=== PATIENT | female | born 1975 | race Caucasian/White ===

== ENCOUNTER 2021-05-07 13:15 | Inpatient (IN) | payer BC ==
[2021-05-07] MEDS ORDERED: cloNIDine HCL 0.1 MG TABLET PO PRN (13:42)
[2021-05-07] MEDS ORDERED: MENTHOL/PHENOL 1 EACH UD MM PRN (13:42)
[2021-05-07] MEDS ORDERED: ONDANSETRON *ODT* 4 MG TABLET SL PRN (13:42)
[2021-05-07] MEDS ORDERED: MAGNESIUM HYDROX 2400MG/30ML ORAL SUSPENSION 30 ML CUP PO PRN (13:42)
[2021-05-07] MEDS ORDERED: ACETAMINOPHEN 325 MG TABLET (FP) PO PRN ×2 (13:42)
[2021-05-07] MEDS ORDERED: MAGNESIUM CITRATE 300 ML BOTTLE PO PRN (13:42)
[2021-05-07] MEDS ORDERED: BISMUTH SUBSALICYLATE 524 MG/30 ML PO PRN (13:42)
[2021-05-07] MEDS ORDERED: IBUPROFEN 400 MG TABLET (FP) PO PRN (13:42)
[2021-05-07] MEDS ORDERED: MAG HYDROX/AL HYDROX/SIMETH 30 ML UNIT-DOSE CUP PO PRN (13:42)
[2021-05-07 13:59] VITALS: BMI 20.9
[2021-05-07] MEDS ORDERED: methaDONE HCL 10 MG TABLET (FOR DETOX USE ONLY) PO ONE (16:15)
[2021-05-07] MEDS ORDERED: NICOTINE 14 MG/24 HOURS TOPICAL PATCH TD SCH (16:30)
[2021-05-07] MEDS: hydrOXYzine PAMOATE 25 MG CAPSULE (FP) PO SCH ×3 (17:24→22:17)
[2021-05-07] MEDS: NICOTINE 10 MG CARTRIDGE (INHALER) IH PRN (17:26)
[2021-05-07] MEDS: PRENATAL VITAMINS W/ FOLIC ACID TABLET (FP) PO SCH (17:29)
[2021-05-07] MEDS ORDERED: RITONAVIR PO SCH (18:00)
[2021-05-07] MEDS ORDERED: [UNRECOGNIZED DRUG - OTHER] PO SCH (18:00)
[2021-05-07] MEDS ORDERED: LOPINAVIR PO SCH (18:00)
[2021-05-07] MEDS: NICOTINE 21 MG/24 HOURS TOPICAL PATCH TD SCH (18:19)
[2021-05-07] MEDS ORDERED: MELATONIN 5 MG TABLETS PO SCH (22:00)
[2021-05-07] MEDS: HALOPERIDOL 5 MG TABLET PO SCH (22:16)
[2021-05-07] MEDS: ATORVASTATIN CA 10 MG TABLET (FP) PO SCH (22:16)
[2021-05-07] MEDS: THIAMINE HCL 100 MG TABLET (FP) PO SCH (22:16)
[2021-05-07] MEDS: QUEtiapine FUMARATE 300 MG TABLET PO SCH (22:17)
[2021-05-08] MEDS ORDERED: LEVOTHYROXINE NA 150 MCG TABLET PO SCH (06:00)
[2021-05-08] MEDS: NICOTINE 10 MG CARTRIDGE (INHALER) IH PRN ×3 (06:05→22:18)
[2021-05-08] MEDS: hydrOXYzine PAMOATE 25 MG CAPSULE (FP) PO SCH ×5 (06:06→22:17)
[2021-05-08] MEDS ORDERED: methaDONE HCL 10 MG TABLET (FOR DETOX USE ONLY) ONE (09:34)
[2021-05-08] MEDS: PRENATAL VITAMINS W/ FOLIC ACID TABLET (FP) PO SCH (10:27)
[2021-05-08] MEDS: FOLIC ACID 1 MG TABLET (FP) PO SCH (10:27)
[2021-05-08] MEDS: QUEtiapine FUMARATE 300 MG TABLET PO SCH ×2 (10:27→22:17)
[2021-05-08] MEDS: DULoxetine HCL 30 MG CAPSULE.DR PO SCH (10:27)
[2021-05-08] MEDS: HALOPERIDOL 5 MG TABLET PO SCH ×2 (10:28→22:17)
[2021-05-08] MEDS: EMTRICITABINE 200MG/TENOFOVIR 300MG PO SCH (10:30)
[2021-05-08] MEDS: NICOTINE 21 MG/24 HOURS TOPICAL PATCH TD SCH (10:31)
[2021-05-08 11:02] LABS: HEMATOCRIT 38.1 % (32.4-45.2); HEMOGLOBIN 12.6 GM/dL (10.7-15.3); MCHC 33.2 g/dl (32.0-36.0); MEAN CELL VOLUME 90.2 fl (80-96); MEAN PLT VOLUME 10.1 fl (7.5-11.1); PLATELET COUNT 151 10^3/uL (134-434); RBC 4.22 M/mm3 (3.60-5.2); RDW 15.6 % (11.6-15.6)
[2021-05-08 11:40] LABS: ALBUMIN 3.2 g/dl (3.4-5.0); BLOOD UREA NITROGEN 10.2 mg/dL (7-18); CREATININE 1.1 mg/dL (0.55-1.3)
[2021-05-08 11:42] LABS: BILIRUBIN,TOTAL 0.2 mg/dL (0.2-1); TOT PROT 6.9 g/dl (6.4-8.2)
[2021-05-08] MEDS: [UNRECOGNIZED DRUG - OTHER] PO SCH ×2 (15:33→22:16)
[2021-05-08] MEDS: RITONAVIR PO SCH ×2 (15:33→22:16)
[2021-05-08] MEDS: LOPINAVIR PO SCH ×2 (15:33→22:16)
[2021-05-08] MEDS: THIAMINE HCL 100 MG TABLET (FP) PO SCH (22:17)
[2021-05-08] MEDS: ATORVASTATIN CA 10 MG TABLET (FP) PO SCH (22:17)
[2021-05-09] MEDS: LEVOTHYROXINE NA 100 MCG TABLET (FP) PO SCH (06:06)
[2021-05-09] MEDS: hydrOXYzine PAMOATE 25 MG CAPSULE (FP) PO SCH ×5 (06:07→22:31)
[2021-05-09] MEDS ORDERED: methaDONE HCL 10 MG TABLET (FOR DETOX USE ONLY) PO ONE (10:00)
[2021-05-09] MEDS: QUEtiapine FUMARATE 300 MG TABLET PO SCH ×2 (10:33→22:31)
[2021-05-09] MEDS: FOLIC ACID 1 MG TABLET (FP) PO SCH (10:33)
[2021-05-09] MEDS: PRENATAL VITAMINS W/ FOLIC ACID TABLET (FP) PO SCH (10:34)
[2021-05-09] MEDS: METHOCARBAMOL 500 MG TABLET PO PRN (10:34)
[2021-05-09] MEDS: HALOPERIDOL 5 MG TABLET PO SCH ×2 (10:34→22:31)
[2021-05-09] MEDS: LOPINAVIR PO SCH ×2 (10:35→22:31)
[2021-05-09] MEDS: DULoxetine HCL 30 MG CAPSULE.DR PO SCH (10:35)
[2021-05-09] MEDS: RITONAVIR PO SCH ×2 (10:35→22:31)
[2021-05-09] MEDS: [UNRECOGNIZED DRUG - OTHER] PO SCH ×2 (10:35→22:31)
[2021-05-09] MEDS: EMTRICITABINE 200MG/TENOFOVIR 300MG PO SCH (10:37)
[2021-05-09] MEDS: NICOTINE 21 MG/24 HOURS TOPICAL PATCH TD SCH (10:38)
[2021-05-09] MEDS: NICOTINE 10 MG CARTRIDGE (INHALER) IH PRN (10:39)
[2021-05-09] MEDS: THIAMINE HCL 100 MG TABLET (FP) PO SCH (22:31)
[2021-05-09] MEDS: ATORVASTATIN CA 10 MG TABLET (FP) PO SCH (22:31)
[2021-05-10] MEDS: LEVOTHYROXINE NA 100 MCG TABLET (FP) PO SCH (06:14)
[2021-05-10] MEDS: hydrOXYzine PAMOATE 25 MG CAPSULE (FP) PO SCH ×5 (06:15→22:20)
[2021-05-10] MEDS ORDERED: methaDONE HCL 10 MG TABLET (FOR DETOX USE ONLY) ONE (09:16)
[2021-05-10] MEDS: EMTRICITABINE 200MG/TENOFOVIR 300MG PO SCH (10:39)
[2021-05-10] MEDS: [UNRECOGNIZED DRUG - OTHER] PO SCH ×2 (10:39→22:19)
[2021-05-10] MEDS: LOPINAVIR PO SCH ×2 (10:39→22:19)
[2021-05-10] MEDS: METHOCARBAMOL 500 MG TABLET PO PRN ×2 (10:39→23:00)
[2021-05-10] MEDS: QUEtiapine FUMARATE 300 MG TABLET PO SCH ×2 (10:39→22:20)
[2021-05-10] MEDS: PRENATAL VITAMINS W/ FOLIC ACID TABLET (FP) PO SCH (10:39)
[2021-05-10] MEDS: RITONAVIR PO SCH ×2 (10:39→22:19)
[2021-05-10] MEDS: FOLIC ACID 1 MG TABLET (FP) PO SCH (10:40)
[2021-05-10] MEDS: HALOPERIDOL 5 MG TABLET PO SCH ×2 (10:40→22:19)
[2021-05-10] MEDS: DULoxetine HCL 60 MG CAPSULE.DR PO SCH (10:41)
[2021-05-10] MEDS: NICOTINE 21 MG/24 HOURS TOPICAL PATCH TD SCH (10:42)
[2021-05-10 13:46] LABS: INR 1.03 (0.83-1.09); PROTHROMBIN TIME (PATIENT) 12.1 SEC (9.7-13.0)
[2021-05-10] MEDS: NICOTINE 10 MG CARTRIDGE (INHALER) IH PRN (16:10)
[2021-05-10] MEDS: THIAMINE HCL 100 MG TABLET (FP) PO SCH (22:20)
[2021-05-10] MEDS: ATORVASTATIN CA 10 MG TABLET (FP) PO SCH (22:20)
[2021-05-11] MEDS: LEVOTHYROXINE NA 100 MCG TABLET (FP) PO SCH (06:33)
[2021-05-11] MEDS: hydrOXYzine PAMOATE 25 MG CAPSULE (FP) PO SCH ×5 (06:34→22:03)
[2021-05-11] MEDS ORDERED: methaDONE HCL 10 MG TABLET (FOR DETOX USE ONLY) PO ONE (10:00)
[2021-05-11] MEDS: FOLIC ACID 1 MG TABLET (FP) PO SCH (10:32)
[2021-05-11] MEDS: METHOCARBAMOL 500 MG TABLET PO PRN ×2 (10:33→17:28)
[2021-05-11] MEDS: DULoxetine HCL 60 MG CAPSULE.DR PO SCH (10:33)
[2021-05-11] MEDS: QUEtiapine FUMARATE 300 MG TABLET PO SCH ×2 (10:33→22:03)
[2021-05-11] MEDS: HALOPERIDOL 5 MG TABLET PO SCH ×2 (10:33→22:02)
[2021-05-11] MEDS: [UNRECOGNIZED DRUG - OTHER] PO SCH ×2 (10:34→22:02)
[2021-05-11] MEDS: RITONAVIR PO SCH ×2 (10:34→22:02)
[2021-05-11] MEDS: LOPINAVIR PO SCH ×2 (10:34→22:02)
[2021-05-11] MEDS: EMTRICITABINE 200MG/TENOFOVIR 300MG PO SCH (10:35)
[2021-05-11] MEDS: NICOTINE 21 MG/24 HOURS TOPICAL PATCH TD SCH (10:35)
[2021-05-11] MEDS: PRENATAL VITAMINS W/ FOLIC ACID TABLET (FP) PO SCH (10:36)
[2021-05-11] MEDS: NICOTINE 10 MG CARTRIDGE (INHALER) IH PRN (18:29)
[2021-05-11] MEDS: THIAMINE HCL 100 MG TABLET (FP) PO SCH (22:03)
[2021-05-11] MEDS: ATORVASTATIN CA 10 MG TABLET (FP) PO SCH (22:03)
[2021-05-12] MEDS: LEVOTHYROXINE NA 100 MCG TABLET (FP) PO SCH (06:36)
[2021-05-12] MEDS: hydrOXYzine PAMOATE 25 MG CAPSULE (FP) PO SCH ×2 (06:36→09:47)
[2021-05-12] MEDS: EMTRICITABINE 200MG/TENOFOVIR 300MG PO SCH (09:45)
[2021-05-12] MEDS: FOLIC ACID 1 MG TABLET (FP) PO SCH (09:45)
[2021-05-12] MEDS: PRENATAL VITAMINS W/ FOLIC ACID TABLET (FP) PO SCH (09:45)
[2021-05-12] MEDS: HALOPERIDOL 5 MG TABLET PO SCH (09:45)
[2021-05-12] MEDS: LOPINAVIR PO SCH (09:46)
[2021-05-12] MEDS: [UNRECOGNIZED DRUG - OTHER] PO SCH (09:46)
[2021-05-12] MEDS: NICOTINE 21 MG/24 HOURS TOPICAL PATCH TD SCH (09:46)
[2021-05-12] MEDS: RITONAVIR PO SCH (09:46)
[2021-05-12] MEDS: QUEtiapine FUMARATE 300 MG TABLET PO SCH (09:47)
[2021-05-12 10:11] VITALS: BP 102/81; PULSE 84; TEMP 98.2
== END 2021-05-12 09:48 | disposition home or self-care (01) | DRG 773 ==
LOC: YASAS 13:15 → Y6N 15:37
PROVIDERS: ADMIT Allergy & Immunology; ATTEND Allergy & Immunology
PROC: HZ2ZZZZ Detoxification Services for Substance Abuse Treatment (ICD-10-PCS; principal; 2021-05-07)
DX: F11.23 Opioid dependence with withdrawal (principal); F10.20 Alcohol dependence, uncomplicated; F14.20 Cocaine dependence, uncomplicated; F17.210 Nicotine dependence, cigarettes, uncomplicated; F33.2 Major depressive disorder, recurrent severe without psychotic features; F19.24 Other psychoactive substance dependence with psychoactive substance-induced mood disorder; Z21 Asymptomatic human immunodeficiency virus [HIV] infection status; E78.5 Hyperlipidemia, unspecified; E89.0 Postprocedural hypothyroidism; Z85.850 Personal history of malignant neoplasm of thyroid
CPT/HCPCS: 36415; 80053; 81025; 85027; 85610; 86780; 93005; 93010; C9803; U0003; U0005

== ENCOUNTER 2023-11-24 10:54 | Inpatient (IN) | payer BC ==
[2023-11-24 12:34] VITALS: BMI 18.3
[2023-11-24] MEDS ORDERED: MAG HYDROX/AL HYDROX/SIMETH 30 ML UNIT-DOSE CUP PO PRN (12:57)
[2023-11-24] MEDS ORDERED: NALOXONE (NARCAN) HCL 4 MG/0.1 ML SPRAY NS PRN (12:57)
[2023-11-24] MEDS ORDERED: BENZONATATE 200 MG CAPSULE PO PRN (12:57)
[2023-11-24] MEDS ORDERED: POLYETHYLENE GLYCOL (HEALTHYLAX) 3350 17 GM PACKET PO PRN (12:57)
[2023-11-24] MEDS ORDERED: NALOXONE HCL 0.4 MG/ML VIAL IM PRN (12:57)
[2023-11-24] MEDS ORDERED: ONDANSETRON *ODT* 4 MG TABLET SL PRN (12:57)
[2023-11-24] MEDS ORDERED: LORazepam 1 MG TABLET PO PRN (12:57)
[2023-11-24] MEDS ORDERED: LOPERAMIDE HCL 2 MG CAPSULE PO PRN (12:57)
[2023-11-24] MEDS ORDERED: ACETAMINOPHEN 325 MG TABLET (FP) PO PRN (12:57)
[2023-11-24] MEDS ORDERED: hydrOXYzine PAMOATE 25 MG CAPSULE (FP) PO PRN (12:57)
[2023-11-24] MEDS ORDERED: DICYCLOMINE HCL 10 MG CAPSULE PO PRN (12:57)
[2023-11-24] MEDS ORDERED: IBUPROFEN 600 MG TABLET (FP) PO PRN (12:57)
[2023-11-24] MEDS ORDERED: BISMUTH SUBSALICYLATE 262 MG/15 ML BTL PO PRN (12:57)
[2023-11-24] MEDS ORDERED: IBUPROFEN 400 MG TABLET (FP) PO PRN (12:57)
[2023-11-24] MEDS ORDERED: METHOCARBAMOL 500 MG TABLET PO PRN (12:57)
[2023-11-24] MEDS ORDERED: guaiFENesin 600 MG TABLET.ER (FP) PO PRN (12:57)
[2023-11-24] MEDS ORDERED: BENZOCAINE/MENTHOL (CHLORASEPTIC ) LOZENGE MM PRN (12:57)
[2023-11-24] MEDS ORDERED: MAGNESIUM HYDROX 2400MG/30ML ORAL SUSPENSION 30 ML CUP PO PRN (12:57)
[2023-11-24] MEDS ORDERED: methaDONE HCL 10 MG TABLET ONE (13:24)
[2023-11-24] MEDS ORDERED: PRENATAL VITAMINS W/ FOLIC ACID TABLET (FP) PO ONE (13:24)
[2023-11-24] MEDS: methaDONE HCL 10 MG TABLET PO ONE (13:25)
[2023-11-24] MEDS: PRENATAL VITAMINS W/ FOLIC ACID TABLET (FP) PO SCH (13:25)
[2023-11-24] MEDS: NICOTINE 14 MG/24 HOURS TOPICAL PATCH TD SCH (13:43)
[2023-11-24] MEDS ORDERED: cloNIDine HCL 0.1 MG TABLET ONE (14:27)
[2023-11-24] MEDS: cloNIDine HCL 0.1 MG TABLET PO SCH (14:30)
[2023-11-24] MEDS ORDERED: methaDONE HCL 10 MG TABLET PO PRN (14:58)
[2023-11-24] MEDS: LORazepam 2 MG TABLET PO SCH (17:29)
[2023-11-24] MEDS: MELATONIN 5 MG TABLETS PO SCH (22:41)
[2023-11-24] MEDS: ATORVASTATIN CA 10 MG TABLET (FP) PO SCH (22:41)
[2023-11-24] MEDS: THIAMINE 100 MG TABLET PO SCH (22:41)
[2023-11-25] MEDS: LEVOTHYROXINE NA 100 MCG TABLET (FP) PO SCH (06:04)
[2023-11-25 10:50] LABS: CHLORIDE 104 mmol/L (98-107); SODIUM 135 mmol/L (136-145)
[2023-11-25 10:53] LABS: CALCIUM 8.6 mg/dL (8.5-10.1); HEMATOCRIT 37.4 % (32.4-45.2); HEMOGLOBIN 12.4 GM/dL (10.7-15.3); MCH 30.3 pg (25.7-33.7); MCHC 33.1 g/dl (32.0-36.0); MEAN CELL VOLUME 91.7 fl (80-96); MEAN PLT VOLUME 8.9 fl (7.5-11.1); PLATELET COUNT 299 10^3/uL (134-434); RBC 4.09 M/mm3 (3.60-5.2); RDW 15.6 % (11.6-15.6); WHITE BLOOD COUNT 5.3 K/mm3 (4.0-10.0)
[2023-11-25 10:54] LABS: ALBUMIN 2.8 g/dl (3.4-5.0); ANION GAP 6 mmol/L (4-13); BLOOD UREA NITROGEN 9.8 mg/dL (7-18); CO2 25 mmol/L (21-32); GLUCOSE,RANDOM 85 mg/dL (74-106)
[2023-11-25] MEDS: methaDONE 40 MG, methaDONE 10 MG PO ONE (10:54)
[2023-11-25 10:57] LABS: SGOT/AST 22 U/L (15-37); SGPT/ALT 28 U/L (13-61)
[2023-11-25 10:58] LABS: BILIRUBIN,TOTAL 0.5 mg/dL (0.2-1); TOT PROT 7.3 g/dl (6.4-8.2)
[2023-11-25 10:59] LABS: ALK PHOS 74 U/L (45-117)
[2023-11-26] MEDS ORDERED: cloNIDine HCL 0.1 MG TABLET PO PRN
[2023-11-26] MEDS: LORazepam 1 MG TABLET PO SCH (05:27)
[2023-11-26] MEDS: methaDONE 40 MG, methaDONE 20 MG PO ONE (09:27)
[2023-11-26 10:07] VITALS: BP 138/70; PULSE 82; RESP 18; TEMP 98.7
[2023-11-27] MEDS ORDERED: LORazepam 0.5 MG TABLET PO PRN
[2023-11-27] MEDS ORDERED: LORazepam 0.5 MG TABLET PO SCH (05:00)
[2023-11-27] MEDS ORDERED: methaDONE 40 MG, methaDONE 30 MG PO ONE (10:00)
[2023-11-28] MEDS ORDERED: LORazepam 0.5 MG TABLET PO ONE (05:00)
[2023-11-28] MEDS ORDERED: methaDONE HCL 40 MG DISPERSABLE TABLET PO ONE (10:00)
[2023-11-29] MEDS ORDERED: methaDONE 80 MG, methaDONE 10 MG PO ONE (10:00)
== END 2023-11-26 11:30 | disposition left against medical advice (07) | DRG 770 ==
LOC: YASAS 10:54 → Y6N 13:18
PROVIDERS: ADMIT Allergy & Immunology; ATTEND Surgery
PROC: HZ2ZZZZ Detoxification Services for Substance Abuse Treatment (ICD-10-PCS; principal; 2023-11-24)
DX: F11.23 Opioid dependence with withdrawal (principal); F10.230 Alcohol dependence with withdrawal, uncomplicated; F17.210 Nicotine dependence, cigarettes, uncomplicated; F25.1 Schizoaffective disorder, depressive type; B20 Human immunodeficiency virus [HIV] disease; E78.5 Hyperlipidemia, unspecified; I10 Essential (primary) hypertension; E89.0 Postprocedural hypothyroidism; Z85.850 Personal history of malignant neoplasm of thyroid; M54.30 Sciatica, unspecified side
CPT/HCPCS: 36415; 80053; 80305; 80307; 81025; 82140; 84436; 84443; 85027; 86780; 93005; 93010